=== PATIENT | female | born 1995 | race African-American/Black ===

== ENCOUNTER 2021-01-03 14:21 | Emergency (ER) | payer SELFPAY ==
[~2021-01-03] VITALS: Ht 167.6 cm; Wt 99.5 kg
--- NOTE | 2021-01-03 15:06 | EKG ---
[facility] [address] [place] [address] Test Date: 2021-01-03 Test Time: 14:30:42 Pat Name: CLARY WILSON Department: Room: Gender: F Director Title: : 1995 Requested By: FEI BENJAMIN Order Number: [id number] Reading MD: Measurements Intervals Garvin Rate: 95 P: 51 NH: 142 QRS: 24 QRSD: 96 T: 46 QT: 380 QTc: 481 Interpretive Statements SINUS RHYTHM PROLONGED QT NO SPECIFIC ECG ABNORMALITIES RI6.02 No previous ECG available for comparison
--- NOTE | 2021-01-03 15:08 | RAD ---
AP portable chest radiograph 01/03/2021 Clinical History: Chest pain. An AP erect portable digital radiograph of the chest was obtained. The cardiac and mediastinal silhouettes are within normal limits in size and configuration. No pulmon tremayne infiltrate is seen. No pleural effusion or pneumothorax is noted. The osseous structures are iftikhar sly intact. IMPRESSION: No acute abnormality is seen. Electronically signed by: Joss Garces MD (01/03/2021 3:06 PM) [id number]
[2021-01-03] MEDS ORDERED: KETOROLAC 30 MG/ML VIAL. IVP ONE (16:00)
--- NOTE | 2021-01-03 16:02 | ED.ADGEN ---
Past Medical History Past Medical History: Asthma Past Surgical History: No Surgical History Smoking Status: Current Every Day Smoker Alcohol Use: Occasionally Drug Use: None General Adult EDM: Chief Complaint: ANXIETY/PANIC ATTACK HPI: HPI: Patient is a 25 year old [f__sex] who presents with [] Review of Systems: Review of Systems: Complete ROS is negative unless otherwise documented in HPI Current Medications: Current Medications Medications (Trade) Dose Ordered Sig/Helder Start Time Stop Time Status Last Admin Dose Admin Ketorolac Tromethamine (Toradol 30mg Vial) 30 mg 1X ONCE 01/03/21 16:00 01/03/21 16:07 DC 01/03/21 16:17 30 MG Allergies: Allergies: Allergies Coded Allergies Type Severity Reaction Last Updated Verified latex Allergy Unknown 12/31/14 Yes Physical Exam: PE: General: Awake, alert, NAD. Well Nourished, well hydrated. Cooperative HEENT: Atraumatic, EOMI, PERRL, airway patent, moist oral mucosa Neck: Supple, trachea midline Respiratory: CTA bilaterally, normal effort, no wheezing/crackles CV: RRR, no murmur, cap refill <2 GI: Soft, nondistended, nontender, no masses MSK: No obvious deformities Skin: Warm, dry, intact Neuro: A&O x3, speech NL, sensory and motor grossly intact, no focal deficits Psych: Normal affect, normal mood, not suicidal or homicidal Current Patient Data: Vital Signs: Vital Signs Date Time Temp Pulse Resp B/P (MAP) Pulse Ox O2 Delivery O2 Flow Rate FiO2 01/03/21 16:55 70 122/72 (89) 98 Room Air 01/03/21 14:25 98.3 16 98.3 EKG: EKG: [] Heart Score: Risk Factors: Risk Factors: DM, Current or recent (<one month) smoker, HTN, HLP, family history of CAD, obesity. Risk Scores: Score 0 - 3: 2.5% MACE over next 6 weeks - Discharge Home Score 4 - 6: 20.3% MACE over next 6 weeks - Admit for Clinical Observation Score 7 - 10: 72.7% MACE over next 6 weeks - Early Invasive Strategies Radiology/Procedures: Radiology/Procedures: [] Course & Med Decision Making: Course & Med Decision Making Pertinent Labs and Imaging studies reviewed. (See chart for details) [] Dragon Disclaimer: Dragon Disclaimer: This electronic medical record was generated, in whole or in part, using a voice recognition dictation system. Departure Departure Impression: Primary Impression: Palpitations Disposition: 01 HOME / SELF CARE / HOMELESS Condition: STABLE Referrals: JUAN GUDINO MD (PCP) NANCY WONG MD Patient Instructions: Palpitations FEI BENJAMIN MD Jan 03, 2021 16:02
[2021-01-03 16:55] VITALS: BP 122/72
== END 2021-01-03 17:00 | disposition home or self-care (01) ==
LOC: ER 14:21
DX: R00.2 Palpitations (principal); R07.89 Other chest pain; R20.0 Anesthesia of skin; J45.909 Unspecified asthma, uncomplicated; F17.200 Nicotine dependence, unspecified, uncomplicated; Z91.040 Latex allergy status
CPT/HCPCS: 71045; 93005; 96374; 99285; J1885